=== PATIENT | male | born 1990 | race Caucasian/White ===

== ENCOUNTER 2024-03-18 13:38 | Day surgery (SDC) | payer SELFPAY ==
[2024-03-18] MEDS: HYDROmorphone 1 MG/ML Syringe IVPUSH ONE (15:10)
[2024-03-18] MEDS: Sodium Chloride 0.9% 1,000 ML IV ONE (15:10)
[2024-03-18 15:11] LABS: BASOPHILS ABSOLUTE AUTO 0.03 K/uL (0.00-0.20); BASOPHILS PERCENT AUTO 0.3 % (0.0-1.0); EOSINOPHILS ABSOLUTE AUTO 0.06 K/uL (0.00-0.45); EOSINOPHILS PERCENT AUTO 0.7 % (0.0-6.0); HEMATOCRIT 43.3 % (42.0-52.0); HEMOGLOBIN 15.2 g/dL (14.0-18.0); IMMATURE GRAN ABSOLUTE AUTO 0.02 K/uL (0.00-0.05); IMMATURE GRAN PERCENT AUTO 0.2 % (0.0-0.4); LYMPHOCYTES ABSOLUTE AUTO 2.37 K/uL (1.00-4.80); LYMPHOCYTES PERCENT AUTO 26.6 % (24.0-44.0); MEAN CORPUSCULAR HEMOGLOBIN 31.8 pg (28.0-32.0); MEAN CORPUSCULAR HGB CONC 35.1 g/dL (32.0-36.0); MEAN CORPUSCULAR VOLUME 90.6 fL (83.0-99.0); MEAN PLATELET VOLUME 10.6 fL (9.4-12.4); MONOCYTES ABSOLUTE AUTO 0.87 K/uL (0.00-0.80); MONOCYTES PERCENT AUTO 9.8 % (0.0-8.0); NEUTROPHILS ABSOLUTE AUTO 5.56 K/uL (1.80-7.70); NEUTROPHILS PERCENT AUTO 62.4 % (41.0-71.0); PLATELET COUNT,PLT 202 K/uL (150-400); RED BLOOD CELL COUNT 4.78 M/uL (4.52-5.90); WHITE BLOOD CELL COUNT,WBC 8.91 K/uL (3.9-11.3)
[2024-03-18] MEDS: Sodium Chloride 0.9% 2.5 ML Syringe FLUSH PRN (15:17)
[2024-03-18] MEDS: Sodium Chloride 0.9% 10 ML Syringe FLUSH PRN (15:17)
[2024-03-18 15:52] LABS: A/G RATIO 1.1 (0.9-1.6); BILIRUBIN TOTAL 0.4 mg/dL (0.2-1.0); CALCIUM 8.8 mg/dL (8.5-10.1); CARBON DIOXIDE,CO2 25.3 mmol/L (21.0-32.0); CREATININE 1.1 mg/dL (0.8-1.3); EST CRCL DRUG DOSING (CG) 79.23 mL/min; POTASSIUM,K 3.7 mmol/L (3.5-5.1); PROTEIN TOTAL,TP 7.5 g/dL (6.4-8.2)
[2024-03-18 15:53] LABS: LACTIC ACID 0.6 mmol/L (0.4-2.0)
[2024-03-18 16:16] LABS: APPEARANCE,URINE CLEAR; BILIRUBIN,URINE NEGATIVE (NEGATIVE); COLOR,URINE YELLOW; GLUCOSE,URINE NEGATIVE (NEGATIVE); KETONES,URINE 15 mg/dL (NEGATIVE); LEUKOCYTE ESTERASE,URINE NEGATIVE (NEGATIVE); NITRITE,URINE NEGATIVE (NEGATIVE); OCCULT BLOOD,URINE NEGATIVE (NEGATIVE); PROTEIN,URINE NEGATIVE (NEGATIVE); UROBILINOGEN,URINE 0.2 EU/dL (<2.0)
[2024-03-18] MEDS: Iopamidol 755 MG/ML 500 ML Multipack Bottle IVPUSH STA (17:32)
[2024-03-18] MEDS ORDERED: Bupivacaine 0.5% 30 ML SDV ONE (18:49)
[2024-03-18] MEDS ORDERED: Dexamethasone 4 MG/ML 5 ML MDV ONE (18:50)
[2024-03-18] MEDS ORDERED: fentaNYL 100 MCG/2 ML SDV ONE (18:50)
[2024-03-18] MEDS ORDERED: Ketorolac 30 MG/ML SDV ONE (18:50)
[2024-03-18] MEDS ORDERED: Ondansetron 4 MG/2 ML SDV ONE (18:50)
[2024-03-18] MEDS ORDERED: Lidocaine 2% 5 ML SDV ONE ×2 (18:50→19:12)
[2024-03-18] MEDS ORDERED: Propofol 200 MG/20 ML SDV ONE (18:50)
[2024-03-18] MEDS ORDERED: Ropivacaine 0.5% 5 MG/ML 30 ML SDV ONE (19:11)
[2024-03-18] MEDS ORDERED: Lidocaine 1% 5 ML VIAL ONE (19:12)
[2024-03-18] MEDS ORDERED: EPINEPHrine 1 MG/1 ML Amp ONE (19:13)
[2024-03-18] MEDS ORDERED: ceFAZolin 2 GM Vial ONE (19:33)
[2024-03-18] MEDS ORDERED: Morphine 2 MG/ML SYRINGE IVPUSH PRN (20:06)
[2024-03-18] MEDS ORDERED: Albuterol 0.083% 2.5 MG/3 ML Neb Soln NEB PRN (20:06)
[2024-03-18] MEDS ORDERED: Ondansetron 4 MG/2 ML SDV IVPUSH PRN (20:06)
[2024-03-18] MEDS ORDERED: droPERidol 5 MG/2 ML SDV IVPUSH PRN (20:06)
[2024-03-18] MEDS ORDERED: HYDROmorphone 1 MG/ML Syringe IVPUSH PRN (20:06)
[2024-03-18] MEDS ORDERED: Naloxone 0.4 MG/ML SDV IVPUSH PRN (20:06)
[2024-03-18] MEDS ORDERED: Metoclopramide 10 MG/2 ML SDV IVPUSH PRN (20:06)
[2024-03-18] MEDS: fentaNYL 50 MCG/ML SDV IVPUSH PRN (20:18)
== END 2024-03-18 21:50 | disposition other institution (70) ==
LOC: MW.ED 13:38 → MW.SDS 17:33 → MW.MS 18:51 → MW.SDS 21:50
PROVIDERS: ATTEND Surgery
DX: K42.0 Umbilical hernia with obstruction, without gangrene (principal); F17.210 Nicotine dependence, cigarettes, uncomplicated
CPT/HCPCS: 36415; 49592; 64488; 74177; 80053; 81003; 83605; 83690; 85025; J0131; J0171; J0665; J0690; J1100; J1170; J1885; J2405; J2704; J2795; J3010; J3490; J7030; Q9967; 96361; 96374; 99284; 99285-25

== ENCOUNTER 2024-05-12 18:49 | Emergency (ER) | payer SELFPAY ==
[2024-05-12 20:02] LABS: BASOPHILS ABSOLUTE AUTO 0.03 K/uL (0.00-0.20); BASOPHILS PERCENT AUTO 0.4 % (0.0-1.0); EOSINOPHILS ABSOLUTE AUTO 0.13 K/uL (0.00-0.45); EOSINOPHILS PERCENT AUTO 1.9 % (0.0-6.0); HEMATOCRIT 39.9 % (42.0-52.0); HEMOGLOBIN 13.7 g/dL (14.0-18.0); IMMATURE GRAN ABSOLUTE AUTO 0.02 K/uL (0.00-0.05); IMMATURE GRAN PERCENT AUTO 0.3 % (0.0-0.4); LYMPHOCYTES ABSOLUTE AUTO 1.97 K/uL (1.00-4.80); LYMPHOCYTES PERCENT AUTO 28.3 % (24.0-44.0); MEAN CORPUSCULAR HEMOGLOBIN 31.3 pg (28.0-32.0); MEAN CORPUSCULAR HGB CONC 34.3 g/dL (32.0-36.0); MEAN CORPUSCULAR VOLUME 91.1 fL (83.0-99.0); MEAN PLATELET VOLUME 9.3 fL (9.4-12.4); MONOCYTES ABSOLUTE AUTO 0.71 K/uL (0.00-0.80); MONOCYTES PERCENT AUTO 10.2 % (0.0-8.0); NEUTROPHILS ABSOLUTE AUTO 4.09 K/uL (1.80-7.70); NEUTROPHILS PERCENT AUTO 58.9 % (41.0-71.0); PLATELET COUNT,PLT 226 K/uL (150-400); RED BLOOD CELL COUNT 4.38 M/uL (4.52-5.90); WHITE BLOOD CELL COUNT,WBC 6.95 K/uL (3.9-11.3)
[2024-05-12 20:26] LABS: A/G RATIO 1.2 (0.9-1.6); ALBUMIN 3.9 g/dL (3.4-5.0); BILIRUBIN TOTAL 0.2 mg/dL (0.2-1.0); CALCIUM 8.9 mg/dL (8.5-10.1); CARBON DIOXIDE,CO2 23.5 mmol/L (21.0-32.0); EST CRCL DRUG DOSING (CG) 87.16 mL/min; POTASSIUM,K 3.8 mmol/L (3.5-5.1); PROTEIN TOTAL,TP 7.2 g/dL (6.4-8.2)
[2024-05-12 20:30] LABS: LACTIC ACID 1.9 mmol/L (0.4-2.0)
[2024-05-12] MEDS: Morphine 4 MG/ML Syringe IVPUSH ONE (20:35)
[2024-05-12] MEDS: Ondansetron 4 MG/2 ML SDV IVPUSH ONE (20:35)
[2024-05-12] MEDS: Sodium Chloride 0.9% 1,000 ML IV ONE (20:35)
[2024-05-12] MEDS: Iopamidol 755 MG/ML 500 ML Multipack Bottle IVPUSH STA (21:00)
== END 2024-05-12 22:01 | disposition home or self-care (01) ==
LOC: MW.ED 18:49
DX: R10.9 Unspecified abdominal pain (principal); R11.2 Nausea with vomiting, unspecified; Z75.8 Other problems related to medical facilities and other health care
CPT/HCPCS: 36415; 74177; 80053; 83605; 85025; 96361; 96374; 96375; 99284; J2270; J2405; J7030; Q9967

== ENCOUNTER 2024-05-17 14:54 | Emergency (ER) | payer SELFPAY | END 2024-05-17 15:52 | disposition home or self-care (01) | LOC: MW.ED 14:54 | DX: L25.9 Unspecified contact dermatitis, unspecified cause (principal); Z79.899 Other long term (current) drug therapy | CPT/HCPCS: 99282 ==

== ENCOUNTER 2024-09-08 14:35 | Emergency (ER) | payer SELFPAY ==
[2024-09-08] MEDS: Lidocaine 4% 1 each Patch TOP PRN (16:06)
[2024-09-08] MEDS: Cyclobenzaprine 10 MG Tab PO ONE (16:06)
[2024-09-08] MEDS: Ibuprofen 800 MG Tab PO ONE (16:06)
== END 2024-09-08 16:47 | disposition home or self-care (01) ==
LOC: MW.ED 14:35
DX: M54.9 Dorsalgia, unspecified (principal); Z75.8 Other problems related to medical facilities and other health care; Z79.899 Other long term (current) drug therapy
CPT/HCPCS: 99283; A9270

== ENCOUNTER 2025-04-07 11:19 | Emergency (ER) | payer SELFPAY ==
[2025-04-07] MEDS: Ibuprofen 800 MG Tab PO ONE (12:05)
[2025-04-07] MEDS: Lidocaine 4% Patch TOP STA (14:26)
== END 2025-04-07 14:29 | disposition home or self-care (01) ==
LOC: MW.ED 11:19
DX: R07.89 Other chest pain (principal); Z79.899 Other long term (current) drug therapy
CPT/HCPCS: 71045; 71250; 93005; 99284; A9270; 93010; 99283

== ENCOUNTER 2025-06-05 08:12 | Emergency (ER) | payer BC, OTHER | END 2025-06-05 10:37 | disposition home or self-care (01) | LOC: MW.ED 08:12 | DX: B34.9 Viral infection, unspecified (principal) | CPT/HCPCS: 87428; 87651; 99283; A9270 ==